=== PATIENT | male | born 1975 | race Caucasian/White ===

== ENCOUNTER 2019-01-07 15:01 | Inpatient (IN) | payer OTHER ==
[2019-01-07 16:53] VITALS: BMI 31.3
--- NOTE | 2019-01-07 17:28 | HP ---
CIWA Score Nausea/Vomitin-No Nausea/No Vomiting Muscle Tremors: 3 Anxiety: 3 Agitation: 2 Paroxysmal Sweats: 3 Orientation: 0-Oriented Tacttile Disturbances: 0-None Auditory Disturbances: 0-None Visual Disturbances: 0-None Headache: 0-None Present CIWA-Ar Total Score: 11 - Admission Criteria OASAS Guidelines: Admission for Medically Managed Detox: Requires at least one of the followin. CIWA greater than 12 2. Seizures within the past 24 hours 3. Delirium tremens within the past 24 hours 4. Hallucinations within the past 24 hours 5. Acute intervention needed for co occurring medical disorder 6. Acute intervention needed for co occurring psychiatric disorder 7. Severe withdrawal that cannot be handled at a lower level of care (continued vomiting, continued diarrhea, abnormal vital signs) requiring intravenous medication and/or fluids 8. Patient presents the following: Acute intervention needed for co-occurring med or psych disorder Admission Criteria Met: Admission criteria met Admission ROS [facility] - HPI Chief Complaint: "DSS send me here, I drink to take care of the shakes in the morning" Allergies/Adverse Reactions: Allergies Allergy/AdvReac Type Severity Reaction Status Date / Time No Known Allergies Allergy Verified 01/07/19 17:27 History of Present Illness: 43 yo male wit hx of alcohol dependence is here seeking detox, this is patients first admission to this facility, reports last detox a "few years go" at [facility]. PMHX: HTN, HDL, Gout, denies any psychiatric hx. Denies suicidal / homicidal ideation. Denies hx of seizures or blackouts. Reports prior hx of DTS three years ago. Longest period of sobriety two months. Exam Limitations: No Limitations - Ebola screening Have you traveled outside of the country in the last 21 days: No Have you had contact with anyone from an Ebola affected area: No Have you been sick,other than usual withdrawal symptoms: No Do you have a fever: No - Review of Systems Constitutional: Chills, Loss of Appetite, Changes in sleep, Other (shakes) EENT: reports: No Symptoms Reported Respiratory: reports: Cough (x 2 weeks) Cardiac: reports: No Symptoms Reported GI: reports: No Symptoms Reported : reports: No Symptoms Reported Musculoskeletal: reports: No Symptoms Reported Integumentary: reports: No Symptoms Reported Neuro: reports: Tremors Endocrine: reports: Increased Thirst Hematology: reports: No Symptoms Reported Psychiatric: reports: Mood/Affect Appropiate, Orientated x3 Other Systems: Reviewed and Negative Patient History - Patient Medical History Hx Anemia: No Hx Asthma: No Hx Chronic Obstructive Pulmonary Disease (COPD): No Hx Cardiac Disorders: No Hx Hypertension: Yes (on meds) Hx Hypercholesterolemia: Yes Hx Pacemaker: No HX Cerebrovascular Accident: No Hx Seizures: No Hx Dementia: No Hx Diabetes: No Hx Gastrointestinal Disorders: No Hx Liver Disease: No Hx Genitourinary Disorders: No Hx Sexually Transmitted Disorders: No Hx Renal Disease (ESRD): No Hx Thyroid Disease: No Hx Human Immunodeficiency Virus (HIV): No Hx Hepatitis C: No Hx Depression: No Hx Suicide Attempt: No Hx Bipolar Disorder: No Hx Schizophrenia: No - Patient Surgical History Past Surgical History: Yes Hx Appendectomy: Yes - PPD History Previous Implant?: Yes Documented Results: Negative w/o proof Implanted On Prior [facility] Admission?: No PPD to be Administered?: Yes - Smoking Cessation Smoking history: Former smoker Have you smoked in the past 12 months: No If you are a former smoker, when did you quit?: 2003 Hx Chewing Tobacco Use: No Initiated information on smoking cessation: No - Substance & Tx. History Hx Alcohol Use: Yes Hx Substance Use: Yes Substance Use Type: Alcohol Hx Substance Use Treatment: Yes (ast detox a "few years go" at [facility]) - Substances Abused Alcohol Route: Oral Frequency: Daily Amount used: 1 - 3 pints vodka Age of first use: 18 Date of Last Use: 01/07/19 Family Disease History - Family Disease History Other Family History: uncles = alcoholism Admission Physical Exam [facility] - Vital Signs Vital Signs: Vital Signs - 24 hr 01/07/19 16:52 Temperature 96.9 F L Pulse Rate 84 Respiratory 18 Rate Blood Pressure 144/90 - Physical General Appearance: Yes: Appropriately Dressed, Alcohol on Breath, Obese, Sweating, Anxious HEENTM: Yes: EOMI, Hearing grossly Normal, Normal ENT Inspection, Normocephalic , Normal Voice, LEONOR, Pharynx Normal, Tm's normal, Other (dry mucous membranes) Respiratory: Yes: Chest Non-Tender, Lungs Clear, Normal Breath Sounds, No Respiratory Distress, No Accessory Muscle Use Neck: Yes: Within Normal Limits Breast: Yes: Breast Exam Deferred Cardiology: Yes: Regular Rhythm, Regular Rate Abdominal: Yes: Normal Bowel Sounds, Non Tender, Soft, Protuberent Genitourinary: Yes: Within Normal Limits Back: Yes: Normal Inspection Musculoskeletal: Yes: full range of Motion, Gait Steady, Pelvis Stable Extremities: Yes: Normal Capillary Refill, Normal Inspection, Normal Range of Motion, Non-Tender Neurological: Yes: independent contractor II-XII NML intact, Fully Oriented, Alert, Motor Strength 5/5, Depressed Affect Integumentary: Yes: Normal Color, Warm, Diaphoresis Lymphatic: Yes: Within Normal Limits - Diagnostic (1) Hypertension Current Visit: Yes Status: Chronic Qualifiers: Hypertension type: essential hypertension Qualified Code(s): I10 - Essential (primary) hypertension (2) Gout Current Visit: Yes Status: Chronic Qualifiers: Gout site: unspecified site Chronicity: chronic (3) Hyperlipidemia Current Visit: Yes Status: Chronic Qualifiers: Hyperlipidemia type: unspecified Qualified Code(s): E78.5 - Hyperlipidemia , unspecified (4) Alcohol dependence with uncomplicated withdrawal Current Visit: Yes Status: Acute Cleared for Admission [facility] - Detox or Rehab [facility] Level of Care: Medically Managed Detox Regimen/Protocol: Librium [facility] Breath Alcohol Content Breath Alcohol Content: 0.175 Urine Drug Screen - Results Drug Screen Negative: Yes Inpatient Rehab Admission - Rehab Decision to Admit Inpatient rehab admission?: No
[2019-01-07] MEDS ORDERED: ACETAMINOPHEN 325 MG TABLET (FP) PO PRN (17:39)
[2019-01-07] MEDS ORDERED: LOPERAMIDE HCL 2 MG CAPSULE PO PRN (17:39)
[2019-01-07] MEDS ORDERED: MAGNESIUM CITRATE 300 ML BOTTLE PO PRN (17:39)
[2019-01-07] MEDS ORDERED: MAGNESIUM HYDROX 2400MG/30ML ORAL SUSPENSION 30 ML CUP PO PRN (17:39)
[2019-01-07] MEDS ORDERED: IBUPROFEN 400 MG TABLET (FP) PO PRN (17:39)
[2019-01-07] MEDS ORDERED: MAG HYDROX/AL HYDROX/SIMETH 30 ML UNIT-DOSE CUP PO PRN (17:39)
[2019-01-07] MEDS ORDERED: hydrOXYzine PAMOATE 25 MG CAPSULE (FP) PO PRN (17:39)
[2019-01-07] MEDS: chlordiazePOXIDE HCL 25 MG CAPSULE PO PRN (19:13)
[2019-01-07] MEDS: THIAMINE HCL 100 MG TABLET (FP) PO SCH (22:26)
[2019-01-07] MEDS: chlordiazePOXIDE HCL 25 MG CAPSULE PO SCH (22:26)
[2019-01-07] MEDS: ROSUVASTATIN CA 20 MG TABLET (FP) PO SCH (22:27)
[2019-01-07 23:23] LABS: URINE APPEARANCE CLEAR; URINE BILIRUBIN NEGATIVE (<2.0 mg/dL); URINE COLOR STRAW; URINE GLUCOSE (UA) NEGATIVE (NEGATIVE); URINE KETONE NEGATIVE (NEGATIVE); URINE LEUK ESTERASE NEGATIVE (NEGATIVE); URINE NITRITE NEGATIVE (NEGATIVE); URINE PROTEIN NEGATIVE (NEGATIVE); URINE UROBILINOGEN NEGATIVE mg/dL (0.2-1.0)
[2019-01-08] MEDS: guaiFENesin/D-METHORPHAN HB 10 ML UNIT-DOSE CUPS PO PRN ×3 (00:11→22:24)
[2019-01-08] MEDS: chlordiazePOXIDE HCL 25 MG CAPSULE PO SCH ×4 (05:57→22:22)
[2019-01-08] MEDS: MENTHOL/PHENOL 1 EACH UD MM PRN ×2 (06:00→22:24)
[2019-01-08] MEDS ORDERED: cloNIDine HCL 0.1 MG TABLET PO ONE (07:41)
[2019-01-08] MEDS: chlordiazePOXIDE HCL 25 MG CAPSULE PO PRN (07:47)
--- NOTE | 2019-01-08 10:18 | PN ---
S CIWA - CIWA Score Nausea/Vomitin-No Nausea/No Vomiting Muscle Tremors: 4-Moderate,w/Arms Extend Anxiety: 3 Agitation: 3 Paroxysmal Sweats: 3 Orientation: 0-Oriented Tacttile Disturbances: 0-None Auditory Disturbances: 0-None Visual Disturbances: 0-None Headache: 1-Very Mild CIWA-Ar Total Score: 14 [facility] Progress Note (SOAP) Subjective: agitation sweats shakes interrupted sleep body aches Objective: 01/08/19 10:13 Vital Signs Temperature 98.2 F 01/08/19 09:36 Pulse Rate 90 01/08/19 09:36 Respiratory Rate 01/08/19 09:36 Blood Pressure 146/100 01/08/19 09:36 O2 Sat by Pulse Oximetry (%) Laboratory Tests 01/07/19 21:00 Urine Color Straw Urine Appearance Clear Urine pH 7.0 Ur Specific [place] 1.009 L Urine Protein Negative Urine Glucose (UA) Negative Urine Ketones Negative Urine Blood Negative Urine Nitrite Negative Urine Bilirubin Negative Urine Urobilinogen Negative Ur Leukocyte Esterase Negative rest of labs pending aaox3 ambulating HTN noted; pt is currently on hypertensive medication Assessment: 01/08/19 10:15 withdrawal sx Plan: continue detox increase fluids continue to monitor BP
[2019-01-08] MEDS: LISINOPRIL 20 MG TABLET (FP) PO SCH (10:33)
[2019-01-08] MEDS: amLODIPine BESYLATE 10 MG TABLET (FP) PO SCH (10:33)
[2019-01-08] MEDS: PRENATAL VITAMINS W/ FOLIC ACID TABLET (FP) PO SCH (10:33)
[2019-01-08] MEDS: ALLOPURINOL 300 MG TABLET (FP) PO SCH (10:37)
[2019-01-08] MEDS: P-EPHED 60MG/TRIPROLIDI 2.5MG TABLET PO PRN (10:37)
[2019-01-08 10:40] LABS: ALBUMIN 3.8 g/dl (3.4-5.0); ALK PHOS 78 U/L (45-117); ANION GAP 8 MMOL/L (8-16); BILIRUBIN,TOTAL 0.4 mg/dL (0.2-1); BLOOD UREA NITROGEN 16 mg/dL (7-18); CALCIUM 8.2 mg/dL (8.5-10.1); CHLORIDE 102 mmol/L (98-107); CO2 26 mmol/L (21-32); GLUCOSE,RANDOM 106 mg/dL (74-106); HEMATOCRIT 42.5 % (35.4-49); HEMOGLOBIN 14.6 GM/dL (11.7-16.9); MCH 31.5 pg (25.7-33.7); MCHC 34.3 g/dl (32.0-35.9); MEAN CELL VOLUME 91.9 fl (80-96); MEAN PLT VOLUME 9.1 fl (7.5-11.1); PLATELET COUNT 224 K/MM3 (134-434); POTASSIUM 4.2 mmol/L (3.5-5.1); RBC 4.63 M/mm3 (4.00-5.60); RDW 14.2 % (11.9-15.9); SGOT/AST 66 U/L (15-37); SGPT/ALT 54 U/L (13-61); SODIUM 137 mmol/L (136-145); TOT PROT 7.4 g/dl (6.4-8.2); WHITE BLOOD COUNT 7.7 K/mm3 (4.0-10.0)
--- NOTE | 2019-01-08 16:58 | EKG ---
Test Reason : Blood Pressure : / mmHG Vent. Rate : 077 BPM Atrial Rate : 077 BPM P-R Int : 162 ms QRS Dur : 092 ms QT Int : 408 ms P-R-T Axes : 040 042 015 degrees QTc Int : 461 ms NORMAL SINUS RHYTHM NORMAL ECG NO PREVIOUS ECGS AVAILABLE Confirmed by JEANNE CASTRO MD ([id number]) on 01/08/2019 4:58:24 PM Referred By: Confirmed By:JEANNE CASTRO MD
[2019-01-08] MEDS: THIAMINE HCL 100 MG TABLET (FP) PO SCH (22:22)
[2019-01-08] MEDS: ROSUVASTATIN CA 20 MG TABLET (FP) PO SCH (22:22)
[2019-01-09] MEDS: chlordiazePOXIDE HCL 25 MG CAPSULE PO SCH ×3 (05:13→17:13)
[2019-01-09] MEDS: MENTHOL/PHENOL 1 EACH UD MM PRN ×2 (05:16→22:21)
[2019-01-09] MEDS: LISINOPRIL 20 MG TABLET (FP) PO SCH (10:10)
[2019-01-09] MEDS: amLODIPine BESYLATE 10 MG TABLET (FP) PO SCH (10:10)
[2019-01-09] MEDS: ALLOPURINOL 300 MG TABLET (FP) PO SCH (10:10)
[2019-01-09] MEDS: PRENATAL VITAMINS W/ FOLIC ACID TABLET (FP) PO SCH (10:10)
--- NOTE | 2019-01-09 11:04 | PN ---
[facility] CIWA - CIWA Score Nausea/Vomitin-No Nausea/No Vomiting Muscle Tremors: 3 Anxiety: 3 Agitation: 3 Paroxysmal Sweats: 3 Orientation: 0-Oriented Tacttile Disturbances: 0-None Auditory Disturbances: 0-None Visual Disturbances: 0-None Headache: 0-None Present CIWA-Ar Total Score: 12 [facility] Progress Note (SOAP) Subjective: sweats shakes cough interrupted sleep Objective: 01/09/19 11:03 Vital Signs Temperature 97.9 F 01/09/19 09:26 Pulse Rate 77 01/09/19 09:26 Respiratory Rate 18 01/09/19 09:26 Blood Pressure 128/87 01/09/19 09:26 O2 Sat by Pulse Oximetry (%) Laboratory Tests 01/07/19 01/08/19 01/08/19 21:00 07:00 07:00 WBC 7.7 RBC 4.63 Hgb 14.6 Hct 42.5 MCV 91.9 MCH 31.5 MCHC 34.3 RDW 14.2 Plt Count 224 MPV 9.1 Sodium 137 Potassium 4.2 Chloride 102 Carbon Dioxide 26 Anion Gap 8 BUN 16 Creatinine 1.0 Creat Clearance w eGFR > 60 Random Glucose 106 Calcium 8.2 L Total Bilirubin 0.4 AST 66 H ALT 54 Alkaline Phosphatase 78 Total Protein 7.4 Albumin 3.8 Urine Color Straw Urine Appearance Clear Urine pH 7.0 Ur Specific [place] 1.009 L Urine Protein Negative Urine Glucose (UA) Negative Urine Ketones Negative Urine Blood Negative Urine Nitrite Negative Urine Bilirubin Negative Urine Urobilinogen Negative Ur Leukocyte Esterase Negative RPR Titer 01/08/19 07:00 WBC RBC Hgb Hct MCV MCH MCHC RDW Plt Count MPV Sodium Potassium Chloride Carbon Dioxide Anion Gap BUN Creatinine Creat Clearance w eGFR Random Glucose Calcium Total Bilirubin AST ALT Alkaline Phosphatase Total Protein Albumin Urine Color Urine Appearance Urine pH Ur Specific [place] Urine Protein Urine Glucose (UA) Urine Ketones Urine Blood Urine Nitrite Urine Bilirubin Urine Urobilinogen Ur Leukocyte Esterase RPR Titer Nonreactive aaox3 ambulating no acute distress Assessment: 01/09/19 11:03 withdrawal sx Plan: continue detox increase fluids robitussin prn throat lozenges
[2019-01-09] MEDS: MELATONIN 5 MG TABLETS PO PRN (22:20)
[2019-01-09] MEDS: THIAMINE HCL 100 MG TABLET (FP) PO SCH (22:20)
[2019-01-09] MEDS: P-EPHED 60MG/TRIPROLIDI 2.5MG TABLET PO PRN (22:21)
[2019-01-09] MEDS: ROSUVASTATIN CA 20 MG TABLET (FP) PO SCH (23:04)
[2019-01-09] MEDS: chlordiazePOXIDE 5 MG CAPSULE PO SCH (23:04)
[2019-01-10] MEDS: guaiFENesin/D-METHORPHAN HB 10 ML UNIT-DOSE CUPS PO PRN ×2 (01:01→22:20)
[2019-01-10] MEDS: chlordiazePOXIDE 5 MG CAPSULE PO SCH ×3 (06:18→17:17)
[2019-01-10] MEDS: amLODIPine BESYLATE 10 MG TABLET (FP) PO SCH (10:03)
[2019-01-10] MEDS: LISINOPRIL 20 MG TABLET (FP) PO SCH (10:03)
[2019-01-10] MEDS: ALLOPURINOL 300 MG TABLET (FP) PO SCH (10:03)
[2019-01-10] MEDS: PRENATAL VITAMINS W/ FOLIC ACID TABLET (FP) PO SCH (10:03)
--- NOTE | 2019-01-10 15:06 | PN ---
[facility] Progress Note (SOAP) Subjective: sweats Objective: 01/10/19 15:05 A & O x 3 In bed reading In no distress Vital Signs Temperature 97.7 F 01/10/19 14:03 Pulse Rate 87 01/10/19 14:03 Respiratory Rate 18 01/10/19 14:03 Blood Pressure 145/83 01/10/19 14:03 O2 Sat by Pulse Oximetry (%) Assessment: 01/10/19 15:05 withdrawal sx Plan: continue detox For d/c in a.m
[2019-01-10] MEDS: ROSUVASTATIN CA 20 MG TABLET (FP) PO SCH (22:19)
[2019-01-10] MEDS: THIAMINE HCL 100 MG TABLET (FP) PO SCH (22:19)
[2019-01-10] MEDS: MELATONIN 5 MG TABLETS PO PRN (22:19)
[2019-01-10] MEDS: chlordiazePOXIDE HCL 10 MG CAPSULE PO SCH (22:19)
[2019-01-11] MEDS: chlordiazePOXIDE HCL 10 MG CAPSULE PO SCH (05:42)
[2019-01-11 07:15] VITALS: BP 145/92; PULSE 72; TEMP 97.5
[2019-01-11] MEDS: amLODIPine BESYLATE 10 MG TABLET (FP) PO SCH (09:03)
[2019-01-11] MEDS: PRENATAL VITAMINS W/ FOLIC ACID TABLET (FP) PO SCH (09:03)
[2019-01-11] MEDS: ALLOPURINOL 300 MG TABLET (FP) PO SCH (09:03)
[2019-01-11] MEDS: LISINOPRIL 20 MG TABLET (FP) PO SCH (09:03)
--- NOTE | 2019-01-11 12:06 | DS ---
[facility] Detox Discharge Summary Admission Date: 01/07/19 Discharge Date: 01/11/19 - History Present History: Alcohol Dependence Additional Comments: Patient completed detox successfully and is stable for discharge. Patient is A/A /Ox3, in nad, vss, ambulatory. Patient instructed to follow up with PCP within 1 -2 weeks. Patient discharged safely. Pertinent Past History: HTN HLD Gout Alcohol dependence - Physical Exam Results Vital Signs: Vital Signs Temperature 97.5 F L 01/11/19 07:15 Pulse Rate 72 01/11/19 07:15 Respiratory Rate 18 01/11/19 07:15 Blood Pressure 145/92 01/11/19 07:15 O2 Sat by Pulse Oximetry (%) Pertinent Admission Physical Exam Findings: Withdrawal symptoms Laboratory Tests 01/07/19 01/08/19 01/08/19 21:00 07:00 07:00 WBC 7.7 RBC 4.63 Hgb 14.6 Hct 42.5 MCV 91.9 MCH 31.5 MCHC 34.3 RDW 14.2 Plt Count 224 MPV 9.1 Sodium 137 Potassium 4.2 Chloride 102 Carbon Dioxide 26 Anion Gap 8 BUN 16 Creatinine 1.0 Creat Clearance w eGFR > 60 Random Glucose 106 Calcium 8.2 L Total Bilirubin 0.4 AST 66 H ALT 54 Alkaline Phosphatase 78 Total Protein 7.4 Albumin 3.8 Urine Color Straw Urine Appearance Clear Urine pH 7.0 Ur Specific [place] 1.009 L Urine Protein Negative Urine Glucose (UA) Negative Urine Ketones Negative Urine Blood Negative Urine Nitrite Negative Urine Bilirubin Negative Urine Urobilinogen Negative Ur Leukocyte Esterase Negative RPR Titer 01/08/19 07:00 WBC RBC Hgb Hct MCV MCH MCHC RDW Plt Count MPV Sodium Potassium Chloride Carbon Dioxide Anion Gap BUN Creatinine Creat Clearance w eGFR Random Glucose Calcium Total Bilirubin AST ALT Alkaline Phosphatase Total Protein Albumin Urine Color Urine Appearance Urine pH Ur Specific [place] Urine Protein Urine Glucose (UA) Urine Ketones Urine Blood Urine Nitrite Urine Bilirubin Urine Urobilinogen Ur Leukocyte Esterase RPR Titer Nonreactive Labs reviewed - Treatment Hospital Course: Detox Protocol Followed, Detoxed Safely, Responded well, Discharged Condition Good - Medication Discharge Medications: Ambulatory Orders Allopurinol [Zyloprim -] 300 mg PO DAILY 01/07/19 Amlodipine Besylate [Norvasc -] 10 mg PO DAILY 01/07/19 Lisinopril 20 mg PO DAILY 01/07/19 Rosuvastatin [Crestor -] 20 mg PO HS 01/07/19 - Diagnosis (1) Alcohol dependence with uncomplicated withdrawal Status: Acute (2) Gout Status: Chronic Qualifiers: Gout site: unspecified site Chronicity: chronic (3) Hyperlipidemia Status: Chronic Qualifiers: Hyperlipidemia type: unspecified Qualified Code(s): E78.5 - Hyperlipidemia , unspecified (4) Hypertension Status: Chronic Qualifiers: Hypertension type: essential hypertension Qualified Code(s): I10 - Essential (primary) hypertension - AMA Did Patient Leave Against Medical Advice: No (F/U with PCP within 1-2 weeks)
== END 2019-01-11 09:30 | disposition home or self-care (01) | DRG 775 ==
LOC: YASAS 15:01 → Y6N 17:51
PROVIDERS: ADMIT Surgery; ATTEND Surgery
PROC: HZ2ZZZZ Detoxification Services for Substance Abuse Treatment (ICD-10-PCS; principal; 2019-01-07)
DX: F10.230 Alcohol dependence with withdrawal, uncomplicated (principal); I10 Essential (primary) hypertension; E78.5 Hyperlipidemia, unspecified; M10.9 Gout, unspecified; E66.9 Obesity, unspecified; Z68.31 Body mass index [BMI] 31.0-31.9, adult; Z87.891 Personal history of nicotine dependence
CPT/HCPCS: 36415; 80053; 81003; 85027; 86593; 93005; 93010; J0735

== ENCOUNTER 2019-01-20 08:39 | Inpatient (IN) | payer OTHER ==
[2019-01-20 09:27] VITALS: BMI 31.3
--- NOTE | 2019-01-20 11:36 | HP ---
CIWA Score Nausea/Vomitin-No Nausea/No Vomiting Muscle Tremors: None Anxiety: 0-No Anxiety, at Ease Agitation: 0-Normal Activity Paroxysmal Sweats: No Perspiration Orientation: 0-Oriented Tacttile Disturbances: 0-None Auditory Disturbances: 0-None Visual Disturbances: 0-None Headache: 0-None Present CIWA-Ar Total Score: 0 - Admission Criteria OASAS Guidelines: Admission for Medically Managed Detox: Requires at least one of the followin. CIWA greater than 12 2. Seizures within the past 24 hours 3. Delirium tremens within the past 24 hours 4. Hallucinations within the past 24 hours 5. Acute intervention needed for co occurring medical disorder 6. Acute intervention needed for co occurring psychiatric disorder 7. Severe withdrawal that cannot be handled at a lower level of care (continued vomiting, continued diarrhea, abnormal vital signs) requiring intravenous medication and/or fluids 8. Admission ROS [facility] Allergies/Adverse Reactions: Allergies Allergy/AdvReac Type Severity Reaction Status Date / Time No Known Allergies Allergy Verified 01/20/19 10:12 History of Present Illness: pt here requesting rehab from etoh use , claims had a few drinks yesterday , completed detox at this facility last week , denies use since d/c until yesterday , denies w/d seizures . Denies blackouts, falls while intoxicated . Pt MAGGY 0.000 @ 17: 30 pm. pmhx : htn pshx : appy Exam Limitations: Intoxication - Ebola screening Have you traveled outside of the country in the last 21 days: No Have you had contact with anyone from an Ebola affected area: No Have you been sick,other than usual withdrawal symptoms: No Do you have a fever: No - Review of Systems Constitutional: No Symptoms Reported EENT: reports: No Symptoms Reported Respiratory: reports: No Symptoms reported Cardiac: reports: No Symptoms Reported GI: reports: No Symptoms Reported : reports: No Symptoms Reported Musculoskeletal: reports: No Symptoms Reported Integumentary: reports: No Symptoms Reported Neuro: reports: No Symptoms reported Endocrine: reports: No Symptoms Reported Psychiatric: reports: Orientated x3 Patient History - Patient Medical History Hx Anemia: No Hx Asthma: No Hx Chronic Obstructive Pulmonary Disease (COPD): No Hx Cardiac Disorders: No Hx Hypertension: No Hx Hypercholesterolemia: Yes Hx Pacemaker: No HX Cerebrovascular Accident: No Hx Seizures: No Hx Dementia: No Hx Diabetes: No Hx Gastrointestinal Disorders: No Hx Liver Disease: No Hx Genitourinary Disorders: No Hx Sexually Transmitted Disorders: No Hx Renal Disease (ESRD): No Hx Thyroid Disease: No Hx Human Immunodeficiency Virus (HIV): No Hx Hepatitis C: No Hx Depression: No Hx Suicide Attempt: No Hx Bipolar Disorder: No Hx Schizophrenia: No - Patient Surgical History Past Surgical History: Yes Hx Appendectomy: Yes (25 years ago) - PPD History Previous Implant?: Yes Documented Results: Negative w/proof Date: 01/09/19 - Reproductive History Patient : No - Smoking Cessation Smoking history: Former smoker Have you smoked in the past 12 months: No If you are a former smoker, when did you quit?: 2003 Hx Chewing Tobacco Use: No Initiated information on smoking cessation: No - Substances Abused Alcohol Route: Oral Frequency: Daily Amount used: 2 pint vodka,3 beers ( 20 oz cans) Age of first use: 23 Date of Last Use: 01/20/19 Family Disease History - Family Disease History Family History: Denies Admission Physical Exam [facility] - Vital Signs Vital Signs: Vital Signs - 24 hr 01/20/19 09:25 Temperature 97.8 F Pulse Rate 70 Respiratory 20 Rate Blood Pressure 129/78 - Physical General Appearance: Yes: Alcohol on Breath, Intoxicated HEENTM: Yes: EOMI, Hearing grossly Normal, Normocephalic, Normal Voice Respiratory: Yes: Chest Non-Tender, Lungs Clear, Normal Breath Sounds Neck: Yes: No masses,lesions,Nodules, Trachea in good position Cardiology: Yes: Regular Rhythm, Regular Rate, S1, S2 Abdominal: Yes: Normal Bowel Sounds, Soft Back: Yes: Normal Inspection Musculoskeletal: Yes: Gait Steady Extremities: Yes: Normal Range of Motion Neurological: Yes: Motor Strength 5/5 Integumentary: Yes: Dry - Diagnostic (1) Alcohol dependence Current Visit: Yes Status: Acute Qualifiers: Substance use status: uncomplicated Qualified Code(s): F10.20 - Alcohol dependence, uncomplicated [facility] Breath Alcohol Content Breath Alcohol Content: 0.090 Urine Drug Screen - Results Drug Screen Negative: No Urine Drug Screen Results: BZO-Benzodiazepines Inpatient Rehab Admission - Rehab Decision to Admit Inpatient rehab admission?: Yes - Initial Determination Are CD services needed?: Yes Free of communicable disease: Yes Not in need of hospitalization: Yes - Rehab Admission Criteria Previous failed treatment: Yes Poor recovery environment: No Comorbidities: No Lacks judgement: Yes Patient is meeting Inpatient Rehab admission criteria:: Yes
[2019-01-20] MEDS ORDERED: MAGNESIUM HYDROX 2400MG/30ML ORAL SUSPENSION 30 ML CUP PO PRN (17:30)
[2019-01-20] MEDS ORDERED: NICOTINE POLACRILEX 2 MG GUM BC PRN (17:30)
[2019-01-20] MEDS ORDERED: MAG HYDROX/AL HYDROX/SIMETH 30 ML UNIT-DOSE CUP PO PRN (17:30)
[2019-01-20] MEDS ORDERED: P-EPHED 60MG/TRIPROLIDI 2.5MG TABLET PO PRN (17:30)
[2019-01-20] MEDS ORDERED: ACETAMINOPHEN 325 MG TABLET (FP) PO PRN (17:30)
[2019-01-20] MEDS ORDERED: MAGNESIUM CITRATE 300 ML BOTTLE PO PRN (17:30)
[2019-01-20] MEDS ORDERED: MENTHOL/PHENOL 1 EACH UD MM PRN (17:30)
[2019-01-20] MEDS ORDERED: IBUPROFEN 400 MG TABLET (FP) PO PRN (17:30)
[2019-01-20] MEDS ORDERED: guaiFENesin 200 MG/10 ML 10 ML UNIT-DOSE CUPS PO PRN (17:30)
[2019-01-20] MEDS ORDERED: LISINOPRIL 20 MG TABLET (FP) PO SCH (17:45)
[2019-01-20] MEDS: THIAMINE HCL 100 MG TABLET (FP) PO SCH (21:43)
[2019-01-20] MEDS: MELATONIN 5 MG TABLETS PO PRN (21:43)
[2019-01-21 01:59] LABS: URINE APPEARANCE TURBID; URINE BILIRUBIN NEGATIVE (<2.0 mg/dL); URINE COLOR YELLOW; URINE GLUCOSE (UA) NEGATIVE (NEGATIVE); URINE KETONE NEGATIVE (NEGATIVE); URINE LEUK ESTERASE NEGATIVE (NEGATIVE); URINE NITRITE NEGATIVE (NEGATIVE); URINE PROTEIN 1+ (NEGATIVE); URINE UROBILINOGEN NEGATIVE mg/dL (0.2-1.0)
[2019-01-21 02:07] LABS: URINE BACTERIA FEW /hpf (NONE SEEN)
[2019-01-21] MEDS: LISINOPRIL 20 MG TABLET (FP) PO SCH (09:50)
[2019-01-21] MEDS: amLODIPine BESYLATE 10 MG TABLET (FP) PO SCH (09:50)
[2019-01-21] MEDS: PRENATAL VITAMINS W/ FOLIC ACID TABLET (FP) PO SCH (09:50)
[2019-01-21] MEDS ORDERED: PNEUMOC 13-VAL CONJ-DIP CRM/PF 0.5 ML DISP.SYRIN IM ONE (10:07)
[2019-01-21] MEDS ORDERED: PNEUMOCOCCAL 23 VACCINE 0.5 ML VIAL IM ONE (12:00)
[2019-01-21] MEDS: THIAMINE HCL 100 MG TABLET (FP) PO SCH (21:14)
[2019-01-21] MEDS: MELATONIN 5 MG TABLETS PO PRN (21:14)
[2019-01-22] MEDS: PRENATAL VITAMINS W/ FOLIC ACID TABLET (FP) PO SCH (09:42)
[2019-01-22] MEDS: amLODIPine BESYLATE 10 MG TABLET (FP) PO SCH (09:43)
[2019-01-22] MEDS: LISINOPRIL 20 MG TABLET (FP) PO SCH (09:43)
[2019-01-22] MEDS: ALLOPURINOL 300 MG TABLET (FP) PO SCH (09:43)
[2019-01-22] MEDS: THIAMINE HCL 100 MG TABLET (FP) PO SCH (21:09)
[2019-01-22] MEDS: MELATONIN 5 MG TABLETS PO PRN (21:09)
[2019-01-23] MEDS: ALLOPURINOL 300 MG TABLET (FP) PO SCH (10:06)
[2019-01-23] MEDS: LISINOPRIL 20 MG TABLET (FP) PO SCH (10:06)
[2019-01-23] MEDS: amLODIPine BESYLATE 10 MG TABLET (FP) PO SCH (10:06)
[2019-01-23] MEDS: PRENATAL VITAMINS W/ FOLIC ACID TABLET (FP) PO SCH (10:06)
[2019-01-23] MEDS: MELATONIN 5 MG TABLETS PO PRN (21:13)
[2019-01-23] MEDS: THIAMINE HCL 100 MG TABLET (FP) PO SCH (21:13)
[2019-01-24] MEDS: PRENATAL VITAMINS W/ FOLIC ACID TABLET (FP) PO SCH (10:03)
[2019-01-24] MEDS: LISINOPRIL 20 MG TABLET (FP) PO SCH (10:04)
[2019-01-24] MEDS: amLODIPine BESYLATE 10 MG TABLET (FP) PO SCH (10:04)
[2019-01-24] MEDS: ALLOPURINOL 300 MG TABLET (FP) PO SCH (10:04)
[2019-01-24] MEDS: THIAMINE HCL 100 MG TABLET (FP) PO SCH (21:30)
[2019-01-24] MEDS: MELATONIN 5 MG TABLETS PO PRN (21:30)
[2019-01-25] MEDS ORDERED: cloNIDine HCL 0.1 MG TABLET PO ONE (06:46)
--- NOTE | 2019-01-25 06:49 | PN ---
[facility] Progress Note Note: Patient's blood pressure this morning is B/P 155/102. Patient is asymptomatic Vital Signs Temperature 97.5 F L 01/25/19 06:50 Pulse Rate 56 L 01/25/19 06:50 Respiratory Rate 18 01/25/19 06:50 Blood Pressure 155/102 H 01/25/19 06:50 O2 Sat by Pulse Oximetry (%) Action: Clonidine 0.1mg tablet 1 tablet oral ordered
[2019-01-25] MEDS: PRENATAL VITAMINS W/ FOLIC ACID TABLET (FP) PO SCH (10:27)
[2019-01-25] MEDS: LISINOPRIL 20 MG TABLET (FP) PO SCH (10:27)
[2019-01-25] MEDS: ALLOPURINOL 300 MG TABLET (FP) PO SCH (10:27)
[2019-01-25] MEDS: amLODIPine BESYLATE 10 MG TABLET (FP) PO SCH (10:27)
[2019-01-25] MEDS: THIAMINE HCL 100 MG TABLET (FP) PO SCH (22:19)
[2019-01-25] MEDS: MELATONIN 5 MG TABLETS PO PRN (22:19)
[2019-01-26] MEDS: amLODIPine BESYLATE 10 MG TABLET (FP) PO SCH (10:00)
[2019-01-26] MEDS: ALLOPURINOL 300 MG TABLET (FP) PO SCH (10:00)
[2019-01-26] MEDS: PRENATAL VITAMINS W/ FOLIC ACID TABLET (FP) PO SCH (10:00)
[2019-01-26] MEDS: LISINOPRIL 20 MG TABLET (FP) PO SCH (10:00)
[2019-01-26] MEDS: MELATONIN 5 MG TABLETS PO PRN (21:32)
[2019-01-26] MEDS: THIAMINE HCL 100 MG TABLET (FP) PO SCH (21:32)
[2019-01-27] MEDS: PRENATAL VITAMINS W/ FOLIC ACID TABLET (FP) PO SCH (09:53)
[2019-01-27] MEDS: ALLOPURINOL 300 MG TABLET (FP) PO SCH (09:53)
[2019-01-27] MEDS: amLODIPine BESYLATE 10 MG TABLET (FP) PO SCH (09:53)
[2019-01-27] MEDS: LISINOPRIL 20 MG TABLET (FP) PO SCH (09:53)
--- NOTE | 2019-01-27 15:33 | PN ---
[facility] Progress Note Note: patient is on Crestor, he has his own supply that was retrieved from Security. Order written for patient to take his own medications and medication was sent to Pharmacy for verification.
[2019-01-27] MEDS: THIAMINE HCL 100 MG TABLET (FP) PO SCH (21:29)
[2019-01-27] MEDS: MELATONIN 5 MG TABLETS PO PRN (21:29)
[2019-01-27] MEDS: ROSUVASTATIN PO SCH (21:30)
[2019-01-28] MEDS: LISINOPRIL 20 MG TABLET (FP) PO SCH (10:28)
[2019-01-28] MEDS: ALLOPURINOL 300 MG TABLET (FP) PO SCH (10:28)
[2019-01-28] MEDS: PRENATAL VITAMINS W/ FOLIC ACID TABLET (FP) PO SCH (10:28)
[2019-01-28] MEDS: amLODIPine BESYLATE 10 MG TABLET (FP) PO SCH (10:28)
[2019-01-28] MEDS: THIAMINE HCL 100 MG TABLET (FP) PO SCH (21:29)
[2019-01-28] MEDS: ROSUVASTATIN PO SCH (21:29)
[2019-01-28] MEDS: MELATONIN 5 MG TABLETS PO PRN (21:29)
[2019-01-29] MEDS: amLODIPine BESYLATE 10 MG TABLET (FP) PO SCH (09:57)
[2019-01-29] MEDS: ALLOPURINOL 300 MG TABLET (FP) PO SCH (09:57)
[2019-01-29] MEDS: LISINOPRIL 20 MG TABLET (FP) PO SCH (09:57)
[2019-01-29] MEDS: PRENATAL VITAMINS W/ FOLIC ACID TABLET (FP) PO SCH (09:57)
[2019-01-29] MEDS: THIAMINE HCL 100 MG TABLET (FP) PO SCH (21:51)
[2019-01-29] MEDS: MELATONIN 5 MG TABLETS PO PRN (21:52)
[2019-01-29] MEDS: ROSUVASTATIN PO SCH (21:52)
[2019-01-30] MEDS: LISINOPRIL 20 MG TABLET (FP) PO SCH (10:11)
[2019-01-30] MEDS: ALLOPURINOL 300 MG TABLET (FP) PO SCH (10:11)
[2019-01-30] MEDS: amLODIPine BESYLATE 10 MG TABLET (FP) PO SCH (10:11)
[2019-01-30] MEDS: PRENATAL VITAMINS W/ FOLIC ACID TABLET (FP) PO SCH (10:11)
[2019-01-30] MEDS: MELATONIN 5 MG TABLETS PO PRN (21:17)
[2019-01-30] MEDS: THIAMINE HCL 100 MG TABLET (FP) PO SCH (21:17)
[2019-01-30] MEDS: ROSUVASTATIN PO SCH (21:18)
[2019-01-31] MEDS: LISINOPRIL 20 MG TABLET (FP) PO SCH (10:06)
[2019-01-31] MEDS: ALLOPURINOL 300 MG TABLET (FP) PO SCH (10:06)
[2019-01-31] MEDS: amLODIPine BESYLATE 10 MG TABLET (FP) PO SCH (10:06)
[2019-01-31] MEDS: PRENATAL VITAMINS W/ FOLIC ACID TABLET (FP) PO SCH (10:06)
[2019-01-31] MEDS: ROSUVASTATIN PO SCH (21:28)
[2019-01-31] MEDS: THIAMINE HCL 100 MG TABLET (FP) PO SCH (21:28)
[2019-01-31] MEDS: MELATONIN 5 MG TABLETS PO PRN (21:28)
[2019-02-01] MEDS: PRENATAL VITAMINS W/ FOLIC ACID TABLET (FP) PO SCH (09:55)
[2019-02-01] MEDS: ALLOPURINOL 300 MG TABLET (FP) PO SCH (09:55)
[2019-02-01] MEDS: amLODIPine BESYLATE 10 MG TABLET (FP) PO SCH (09:55)
[2019-02-01] MEDS: LISINOPRIL 20 MG TABLET (FP) PO SCH (09:55)
[2019-02-01] MEDS: THIAMINE HCL 100 MG TABLET (FP) PO SCH (21:14)
[2019-02-01] MEDS: ROSUVASTATIN PO SCH (21:15)
[2019-02-01] MEDS: MELATONIN 5 MG TABLETS PO PRN (21:15)
[2019-02-02] MEDS: PRENATAL VITAMINS W/ FOLIC ACID TABLET (FP) PO SCH (10:06)
[2019-02-02] MEDS: LISINOPRIL 20 MG TABLET (FP) PO SCH (10:06)
[2019-02-02] MEDS: ALLOPURINOL 300 MG TABLET (FP) PO SCH (10:06)
[2019-02-02] MEDS: amLODIPine BESYLATE 10 MG TABLET (FP) PO SCH (10:06)
[2019-02-02] MEDS: MELATONIN 5 MG TABLETS PO PRN (21:18)
[2019-02-02] MEDS: THIAMINE HCL 100 MG TABLET (FP) PO SCH (21:18)
[2019-02-02] MEDS: ROSUVASTATIN PO SCH (21:18)
[2019-02-03] MEDS: LISINOPRIL 20 MG TABLET (FP) PO SCH (09:58)
[2019-02-03] MEDS: amLODIPine BESYLATE 10 MG TABLET (FP) PO SCH (09:58)
[2019-02-03] MEDS: PRENATAL VITAMINS W/ FOLIC ACID TABLET (FP) PO SCH (09:58)
[2019-02-03] MEDS: ALLOPURINOL 300 MG TABLET (FP) PO SCH (09:58)
[2019-02-03] MEDS ORDERED: PT OWN MED DRAWER 7, Y5N ONE (19:41)
[2019-02-03] MEDS: THIAMINE HCL 100 MG TABLET (FP) PO SCH (21:26)
[2019-02-03] MEDS: MELATONIN 5 MG TABLETS PO PRN (21:26)
[2019-02-03] MEDS: ROSUVASTATIN PO SCH (21:26)
[2019-02-04] MEDS: PRENATAL VITAMINS W/ FOLIC ACID TABLET (FP) PO SCH (09:53)
[2019-02-04] MEDS: LISINOPRIL 20 MG TABLET (FP) PO SCH (09:53)
[2019-02-04] MEDS: amLODIPine BESYLATE 10 MG TABLET (FP) PO SCH (09:53)
[2019-02-04] MEDS: ALLOPURINOL 300 MG TABLET (FP) PO SCH (09:53)
[2019-02-04] MEDS: THIAMINE HCL 100 MG TABLET (FP) PO SCH (21:50)
[2019-02-04] MEDS: MELATONIN 5 MG TABLETS PO PRN (21:50)
[2019-02-04] MEDS: ROSUVASTATIN PO SCH (21:50)
[2019-02-05 07:11] VITALS: TEMP 97.5
[2019-02-05] MEDS: PRENATAL VITAMINS W/ FOLIC ACID TABLET (FP) PO SCH (10:04)
[2019-02-05] MEDS: LISINOPRIL 20 MG TABLET (FP) PO SCH (10:04)
[2019-02-05] MEDS: amLODIPine BESYLATE 10 MG TABLET (FP) PO SCH (10:04)
[2019-02-05] MEDS: ALLOPURINOL 300 MG TABLET (FP) PO SCH (10:04)
[2019-02-05] MEDS: MELATONIN 5 MG TABLETS PO PRN (21:20)
[2019-02-05] MEDS: THIAMINE HCL 100 MG TABLET (FP) PO SCH (21:20)
[2019-02-05] MEDS: ROSUVASTATIN PO SCH (21:20)
[2019-02-06 07:10] VITALS: BP 131/86; PULSE 58
[2019-02-06] MEDS: PRENATAL VITAMINS W/ FOLIC ACID TABLET (FP) PO SCH (09:02)
[2019-02-06] MEDS: amLODIPine BESYLATE 10 MG TABLET (FP) PO SCH (09:02)
[2019-02-06] MEDS: ALLOPURINOL 300 MG TABLET (FP) PO SCH (09:02)
[2019-02-06] MEDS: LISINOPRIL 20 MG TABLET (FP) PO SCH (09:02)
--- NOTE | 2019-02-06 10:48 | PN ---
[facility] Progress Note Note: REHAB DISCHARGE NOTE: PATIENT COMPLETED REHAB TREATMENT TODAY. PATIENT SCHEDULED FOR AFTERCARE AT [facility], 02/06/19 AT 12 NOON. PATIENT PROVIDED DISCHARGE INSTRUCTIONS BY NURSING STAFF BUT LEFT UNIT PRIOR TO SEEING PROVIDER. ALL HOME MEDICATIONS SENT TO PREFERRED PHARMACY BY DE FRASER DNP. Laboratory Tests 01/20/19 01/20/19 13:00 23:30 Urine Color Yellow Urine Appearance Turbid Urine pH 5.0 D Ur Specific [place] 1.023 Urine Protein 1+ H Urine Glucose (UA) Negative Urine Ketones Negative Urine Blood Negative Urine Nitrite Negative Urine Bilirubin Negative Urine Urobilinogen Negative Ur Leukocyte Esterase Negative Urine WBC (Auto) 28 Urine RBC (Auto) 2 Urine Bacteria Few HIV 1&2 Antibody Screen Negative HIV P24 Antigen Negative Vital Signs Temperature 97.5 F L 02/06/19 07:09 Pulse Rate 58 L 02/06/19 07:09 Respiratory Rate 18 02/06/19 07:09 Blood Pressure 131/86 02/06/19 07:09 O2 Sat by Pulse Oximetry (%) Home Medications Medication Instructions Recorded Allopurinol [Zyloprim -] 300 mg PO DAILY 30 Days #30 tablet 02/05/19 Amlodipine Besylate [Norvasc -] 10 mg PO DAILY 30 Days #30 tablet 02/05/19 Lisinopril 20 mg PO DAILY 30 Days #30 tablet 02/05/19 Rosuvastatin [Crestor -] 20 mg PO HS 30 Days #20 tablet 02/05/19
== END 2019-02-06 09:15 | disposition home or self-care (01) | DRG 772 ==
LOC: YASAS 08:39 → Y3W 12:00
PROVIDERS: ADMIT Neuromusculoskeletal Medicine & OMM; ATTEND Neuromusculoskeletal Medicine & OMM
PROC: HZ42ZZZ Group Counseling for Substance Abuse Treatment, Cognitive-Behavioral (ICD-10-PCS; principal; 2019-01-20)
DX: F10.20 Alcohol dependence, uncomplicated (principal); I10 Essential (primary) hypertension; E78.5 Hyperlipidemia, unspecified; M10.9 Gout, unspecified; Z87.891 Personal history of nicotine dependence
CPT/HCPCS: 36415; 81003; 81015; 87389; 90732; G0009; J0735